=== PATIENT | male | born 1945 | race Caucasian/White ===

== ENCOUNTER → 2019-07-30 | Outpatient (CLI) | payer MEDICARE ==
[~2019-07-30] MED LIST: Augmentin 875-1 EACH PO; CEPH500 PO; HYDACE5 PO; NAPR220 PO; Percocet 5-3251 EACH PO; SULTRIDS PO
[2019-07-31 13:57] LABS: Stool Occult Bld Immuno 1 Negative (NEGATIVE)
== END ==
LOC: LAB EV 11:02
PROVIDERS: Physician Assistant
DX: Z12.11 Encounter for screening for malignant neoplasm of colon (principal)
CPT/HCPCS: 82274

== ENCOUNTER → 2020-08-13 | Outpatient (CLI) | payer MEDICARE ==
[2020-08-13 13:09] LABS: Stool Occult Bld Immuno 1 Negative (NEGATIVE)
== END ==
LOC: LAB SHORT 09:30 → LAB 09:30 → LAB SHORT 10:28
PROVIDERS: Physician Assistant
DX: Z12.11 Encounter for screening for malignant neoplasm of colon (principal)
CPT/HCPCS: 82274

== ENCOUNTER 2023-03-28 10:56 | Day surgery (SDC) | payer MEDICARE ==
[~2023-03-28] VITALS: Ht 172 cm; Wt 87.9 kg
[2023-03-28] VITALS (13 sets, daily range): BP systolic 113–165; BP diastolic 58–78
[~2023-03-28 10:56] MED LIST changes: +Aspirin325 MG PO; +IBUP200 PO
--- NOTE | 2023-03-28 13:27 | NUR ---
Ambulatory in Day Surgery. History, Chart, Medications and Allergies reviewed before start of procedure. Patient confirms NPO status and agrees with scheduled surgery. Surgical site prepped with 2% Chlorhexidine cloth wipe. Patient reports completing Chlorhexadine shower X5 prior to admission to hospital. Pre-Op teaching done. Pt verbalizes understanding. GLASSES DELIVED TO PACU.
--- NOTE | 2023-03-28 17:39 | NUR ---
PATIENT ARRIVED FROM PACU TODAY AT 1730. POD 0 RIGHT TOTAL KNEE PATIENT IS A&OX4. 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 OTHERWISE, VS ARE WNL AND IS ON RA. PATIENT HAD A SPINAL DURING PROCEDURE AND REPORTS SLIGHT NUMBNESS BUT STATED "I'M ABLE TO MOVE MY LEGS MORE". HE IS TOLERATING SMALL AMOUNTS OF PO INTAKE. PEDAL PULSES ARE STRONG AND WARM TO TOUCH. HIS RIGHT KNEE HAS LULÚ WRAP THAT IS C/D/I. PATIENT IS LAYING IN BED WITH CALL LIGHT IN REACH AND FAMILY AT BEDSIDE.
[2023-03-29 00:02] VITALS: BP 134/75
[2023-03-29 04:09] VITALS: BP 115/70
--- NOTE | 2023-03-29 04:27 | NUR ---
SHIFT SUMMARY POD 1 R TKA. NO ACUTE CHANGES OVERNIGHT. STAPLE CLOSURE WITH LULÚ WRAP, C/D/I. NO ACUTE CHANGES OVERNIGHT. PT TOLERATING ORALS. PAIN WITHIN ACCEPTABLE LIMITATIONS, MEDICATED PER EMAR. AMBULATES TO RESTROOM WITH FWW AND STANDBY ASSIST. PT TO WORK WITH PT/OT TODAY. ANTICIPATED D/C LATER TODAY. CALL LIGHT WITHIN REACH, BED IN LOWEST POSITION, WILL REPORT TO DAY RN.
[2023-03-29 06:10] LABS: BASOPHILS ABSOLUTE AUTO 0.02 K/mm3 (0.00-0.23); BASOPHILS PERCENT AUTO 0 % (0-2); EOSINOPHILS PERCENT AUTO 0 % (0-6); Hematocrit 37.2 % (37.0-53.0); Hemoglobin 12.6 g/dL (13.5-17.5); IMMATURE GRAN ABSOLUTE AUTO 0.04 K/mm3 (0.00-0.10); IMMATURE GRAN PERCENT AUTO 0 % (0-1); LYMPHOCYTES ABSOLUTE AUTO 1.15 K/mm3 (0.84-5.20); LYMPHOCYTES PERCENT AUTO 10 % (21-46); MONOCYTES ABSOLUTE AUTO 0.86 K/mm3 (0.16-1.47); MONOCYTES PERCENT AUTO 7 % (4-13); Mean Corpuscular HGB Conc 33.9 g/dL (31.5-36.5); Mean Corpuscular Volume 94 fL (80-100); Mean Platelet Volume 10.8 fL (9.1-12.4); NEUTROPHILS ABSOLUTE AUTO 9.97 K/mm3 (1.96-9.15); NEUTROPHILS PERCENT AUTO 83 % (41-73); Platelet Count 257 K/mm3 (150-400); RDW Coefficient Variation 12.8 % (11.7-14.2); RDW Standard Deviation 44.4 fL (35.1-46.3); Red Blood Cell Count 3.94 M/mm3 (4.30-5.90); White Blood Cell Count 12.04 K/mm3 (4.00-11.30)
[2023-03-29 06:31] LABS: Bun/Creatinine Ratio 13.6 (12.0-20.0); Calcium, Blood 8.7 mg/dL (8.5-10.1); Creatinine, Blood 0.73 mg/dL (0.60-1.20); Magnesium, Blood 1.6 mg/dL (1.6-2.4); Potassium, Blood 4.6 mmol/L (3.5-5.5)
[2023-03-29 07:02] VITALS: BP 131/70
[2023-03-29] MEDS ORDERED: ASPI81CH PO (10:18)
[2023-03-29] MEDS ORDERED: OXAYDO5 M1 PO (10:19)
[2023-03-29] MEDS ORDERED: PROM25 PO (10:20)
[2023-03-29] MEDS ORDERED: SULTRIDS PO (10:20)
--- NOTE | 2023-03-29 10:33 | NUR ---
DISCHARGE PT EDUCATED ON AND RECEIVED PRINTED DISCHARGE INSTRUCTIONS AND VERBALIZED AN UNDERSTANDING. X2 AQUACEL DRESSINGS GIVEN TO PT. IV DC'D. PT PAIN CONTROLLED, VOIDING, AND CLEARED THERAPY. PT PACKED UP PERSONAL BELONGINGS. PT REPORTS RX FILLED AT HOME. PT WAITING FOR RIDE HOME.
== END 2023-03-29 11:03 | disposition home or self-care (01) ==
LOC: ORSCMMR 10:56 → ORD 12:30 → ORSCMMR 14:15 → ORD 15:00 → SURS 17:08 → ORSCMMR 03-29 11:03
PROVIDERS: Orthopaedic Surgery
PROC: 0SRC0J9 Replacement of Right Knee Joint with Synthetic Substitute, Cemented, Open Approach (ICD-10-PCS; principal; 2023-03-28 14:15)
DX: M17.0 Bilateral primary osteoarthritis of knee (principal); Z79.899 Other long term (current) drug therapy; Z79.82 Long term (current) use of aspirin; Z87.891 Personal history of nicotine dependence
CPT/HCPCS: 36415; 73560-RT; 80048; 83735; 85025; 97110; 97116; 97162; A9270; C1713; C1776; J0171; J0690; J0735; J1100; J1170; J1885; J2250; J2405; J2704; J2795; J3010; J3370; J3470; J7120